=== PATIENT | female | born 1950 | race Caucasian/White ===

== ENCOUNTER 2018-08-15 11:30 | Day surgery (SDC) | payer OTHER, MEDICAID ==
[2018-08-15] MEDS ORDERED: PROPOFOL 40 ML (14:30)
[2018-08-15] MEDS ORDERED: LIDOCAINE 2% (SDV) 5 ML INJ (14:30)
== END 2018-08-15 16:01 | disposition home or self-care (01) ==
LOC: GIL 11:30
DX: Z12.11 Encounter for screening for malignant neoplasm of colon (principal); K62.1 Rectal polyp; K44.9 Diaphragmatic hernia without obstruction or gangrene; K21.9 Gastro-esophageal reflux disease without esophagitis; I10 Essential (primary) hypertension; E78.5 Hyperlipidemia, unspecified
CPT/HCPCS: 43239; 88305; 88312